=== PATIENT | female | born 1985 | race African-American/Black ===

== ENCOUNTER 2017-02-24 11:47 | Inpatient (IN) | payer MEDICAID ==
[~2017-02-24] VITALS: Ht 167.6 cm; Wt 68.4 kg
[2017-02-24] MEDS ORDERED: SODIUM CHLORIDE 0.9% 1,000 ML IV ONE ×2 (12:43→16:55)
[2017-02-24] MEDS ORDERED: KETOROLAC 30 MG/1 ML ONE (13:10)
[2017-02-24] MEDS ORDERED: ACETAMINOPHEN 325 MG TABLET ONE (13:10)
[2017-02-24 13:12] LABS: RAPID INFLUENZA A Negative (Negative); RAPID INFLUENZA B Negative (Negative)
[2017-02-24 13:16] LABS: BASOPHILS # (AUTO) 0.07 x10^3/uL (0-0.1); BASOPHILS % (AUTO) 1 % (0-1); EOSINOPHILS % (AUTO) 1 % (1-7); LYMPHOCYTES # (AUTO) 1.47 x10^3/uL (1-3.4); LYMPHOCYTES % (AUTO) 17 % (22-44); MD NO; MEAN CORPUSCULAR HEMOGLOBIN 26.2 pg (27.0-34.8); MEAN CORPUSCULAR HGB CONC 32.1 g/dL (32.4-35.8); MEAN CORPUSCULAR VOLUME 81.7 fL (80-100); MEAN PLATELET VOLUME 8.9 fL (7.4-10.4); MONOCYTES # (AUTO) 0.49 x10^3/uL (0.2-0.8); MONOCYTES % (AUTO) 6 % (2-9); NEUTROPHILS # (AUTO) 6.61 x10^3/uL (1.8-6.8); NEUTROPHILS % (AUTO) 76 % (42-75); PLATELET COUNT 282 x10^3/uL (130-400); RED BLOOD COUNT 4.44 x10^6/uL (3.82-5.3); RED CELL DISTRIBUTION WIDTH 15.5 % (9.6-15.2)
[2017-02-24 13:24] LABS: ANION GAP 10 mmol/L (5-15); CALCIUM 8.2 mg/dL (8.5-10.1); CHLORIDE 108 mmol/L (98-107); CREATININE 0.89 mg/dL (0.55-1.02)
[2017-02-24 13:25] LABS: ALBUMIN 3.1 g/dL (3.4-5.0)
[2017-02-24] MEDS ORDERED: KETOROLAC 30 MG/1 ML IVPush ONE (13:30)
[2017-02-24] MEDS ORDERED: ACETAMINOPHEN 325 MG TABLET PO ONE (13:30)
[2017-02-24] MEDS ORDERED: SODIUM CHLORIDE 0.9% 1,000ML IVBOLUS ONE ×2 (14:00→17:00)
[2017-02-24] MEDS ORDERED: LORazepam 2 MG/ML, 1ML ONE (15:04)
[2017-02-24] MEDS ORDERED: LORazepam 2 MG/ML, 1ML IVPush ONE (15:30)
[2017-02-24] MEDS ORDERED: OMNIPAQUE 350 MG/ML, 100ML BOTTLE ONE (16:08)
[2017-02-24] MEDS ORDERED: CEFTRIAXONE PMX 1GM/50ML 50 ML IVPB ONE (17:00)
[2017-02-24] MEDS ORDERED: AZITHROMYCIN 500 MG in SODIUM CHLORIDE 0.9% 250 ML IV ONE (17:00)
[2017-02-24] MEDS ORDERED: ONDANSETRON 2MG/ML, 2ML IVPush ONE ×2 (17:00→19:00)
[2017-02-24] MEDS ORDERED: CEFTRIAXONE PMX 1GM/50ML 50 ML ONE (17:08)
[2017-02-24] MEDS ORDERED: ONDANSETRON 2MG/ML, 2ML ONE ×2 (17:17→18:57)
[2017-02-24] MEDS ORDERED: SODIUM CHLORIDE 0.9% 1,000 ML IV SCH (17:23)
[2017-02-24] MEDS: CEFTRIAXONE PMX 1GM/50ML 50 ML IV SCH (17:30)
[2017-02-24] MEDS ORDERED: ONDANSETRON ODT 4 MG PO PRN (17:30)
[2017-02-24] MEDS ORDERED: ONDANSETRON 2MG/ML, 2ML IVPush PRN (17:30)
[2017-02-24] MEDS ORDERED: AZITHROMYCIN 500 MG in SODIUM CHLORIDE 0.9% 250 ML IV SCH (18:00)
[2017-02-24] MEDS ORDERED: MAGNESIUM SULFATE PMX 2GM/50ML 50 ML IV ONE (18:47)
[2017-02-24] MEDS ORDERED: PROMETHAZINE 25 MG/ML, 1ML IM PRN (19:30)
[2017-02-24] MEDS ORDERED: PROMETHAZINE/COD. 10MG/6.25MG/5 ML ORAL SOL PO PRN (19:30)
[2017-02-24] MEDS ORDERED: PROMETHAZINE 25 MG/ML, 1ML ONE (20:02)
[2017-02-24] MEDS: DOXYCYCLINE 100 MG in DEXTROSE 5% 250 ML IV SCH (22:41)
[2017-02-24] MEDS: GUAIFENESIN 100 MG/5 ML, 10ML UDC PO PRN (22:48)
[2017-02-24 23:07] VITALS: BP 160/115
[2017-02-24] MEDS ORDERED: METOPROLOL TARTRATE 25 MG TABLET PO ONE (23:30)
[2017-02-25] VITALS (7 sets, daily range): BP systolic 129–157; BP diastolic 100–118
[2017-02-25 00:51] LABS: HCG UR SG > 1.030 (1.003-1.030)
[2017-02-25] MEDS ORDERED: FUROSEMIDE 40 MG/4 ML IV ONE ×2 (01:00→17:30)
[2017-02-25] MEDS ORDERED: LORazepam 2 MG/ML, 1ML IVPush ONE (03:00)
[2017-02-25 03:26] LABS: BASOPHILS # (AUTO) 0.08 x10^3/uL (0-0.1); BASOPHILS % (AUTO) 1 % (0-1); EOSINOPHILS # (AUTO) 0.01 x10^3/uL (0-0.4); EOSINOPHILS % (AUTO) 0 % (1-7); LYMPHOCYTES # (AUTO) 1.82 x10^3/uL (1-3.4); LYMPHOCYTES % (AUTO) 19 % (22-44); MD NO; MEAN CORPUSCULAR HEMOGLOBIN 26.1 pg (27.0-34.8); MEAN CORPUSCULAR HGB CONC 32.2 g/dL (32.4-35.8); MEAN CORPUSCULAR VOLUME 80.9 fL (80-100); MEAN PLATELET VOLUME 8.6 fL (7.4-10.4); MONOCYTES # (AUTO) 0.58 x10^3/uL (0.2-0.8); MONOCYTES % (AUTO) 6 % (2-9); NEUTROPHILS # (AUTO) 7.18 x10^3/uL (1.8-6.8); NEUTROPHILS % (AUTO) 74 % (42-75); PLATELET COUNT 273 x10^3/uL (130-400); RED BLOOD COUNT 4.18 x10^6/uL (3.82-5.3); RED CELL DISTRIBUTION WIDTH 14.8 % (9.6-15.2)
[2017-02-25] MEDS ORDERED: methylPREDNISolone SOD SUCC 125 MG/2 ML IVPush ONE (03:30)
[2017-02-25 03:37] LABS: ALANINE AMINOTRANSFERASE 57 U/L (12-78); ALBUMIN 2.7 g/dL (3.4-5.0); ANION GAP 13 mmol/L (5-15); CALCIUM 7.4 mg/dL (8.5-10.1); CHLORIDE 111 mmol/L (98-107); CREATININE 1.08 mg/dL (0.55-1.02)
[2017-02-25 03:47] LABS: ALKALINE PHOSPHATASE 91 U/L (45-117); BILIRUBIN,TOTAL 0.6 mg/dL (0.2-1.0); THYROID STIMULATING HORMONE 0.374 mIU/L (0.358-3.740); TOTAL PROTEIN 6.2 g/dL (6.4-8.2)
[2017-02-25] MEDS: DOXYCYCLINE 100 MG in DEXTROSE 5% 250 ML IV SCH ×2 (12:17→22:47)
[2017-02-25] MEDS: ENOXAPARIN 40 MG/0.4 ML SQ SCH (13:00)
[2017-02-25 14:30] LABS: INTERNATIONAL NORMALIZED RATIO 1.31 (0.93-1.1); PROTHROMBIN TIME 13.6 Seconds (9.6-11.5)
[2017-02-25] MEDS ORDERED: LORazepam 1MG TABLET ONE (14:38)
[2017-02-25 14:42] LABS: MICROSCOPIC INDICATED
[2017-02-25] MEDS: LORazepam 1MG TABLET PO PRN ×2 (14:43→21:44)
[2017-02-25 14:52] LABS: CULTURE INDICATED? NO
[2017-02-25] MEDS ORDERED: LORazepam 2 MG/ML, 1ML IVPush PRN (15:00)
[2017-02-25] MEDS: POTASSIUM CHLORIDE 20 MEQ TAB.ER.PRT PO SCH (17:35)
[2017-02-25] MEDS: CEFTRIAXONE PMX 1GM/50ML 50 ML IV SCH (17:35)
[2017-02-25 17:57] LABS: AMPHETAMINE SCREEN, URINE Negative (Negative); BARBITURATE SCREEN, URINE Negative (Negative); BENZODIAZEPINE SCREEN, URINE Negative (Negative); CANNABINOID SCREEN, URINE Positive (Negative); COCAINE SCREEN, URINE Negative (Negative); METHADONE SCREEN, URINE Negative (Negative); OPIATE SCREEN, URINE Negative (Negative)
[2017-02-25] MEDS: LABETALOL 100 MG TABLET PO SCH (18:11)
[2017-02-25] MEDS: ACETAMINOPHEN 325 MG TABLET PO PRN ×2 (18:11→22:47)
[2017-02-25] MEDS: GUAIFENESIN 100 MG/5 ML, 10ML UDC PO PRN (21:44)
[2017-02-26 00:34] VITALS: BP 148/107
[2017-02-26] MEDS: ACETAMINOPHEN 325 MG TABLET PO PRN ×2 (05:24→21:51)
[2017-02-26] MEDS: LORazepam 1MG TABLET PO PRN ×3 (05:24→23:02)
[2017-02-26 05:37] LABS: ALBUMIN 2.9 g/dL (3.4-5.0); ANION GAP 10 mmol/L (5-15); CALCIUM 7.9 mg/dL (8.5-10.1); CHLORIDE 107 mmol/L (98-107)
[2017-02-26 05:42] LABS: ALANINE AMINOTRANSFERASE 129 U/L (12-78); ALKALINE PHOSPHATASE 89 U/L (45-117); BILIRUBIN,TOTAL 0.5 mg/dL (0.2-1.0); TOTAL PROTEIN 6.3 g/dL (6.4-8.2)
[2017-02-26 06:09] LABS: BASOPHILS # (AUTO) 0.05 x10^3/uL (0-0.1); BASOPHILS % (AUTO) 0 % (0-1); EOSINOPHILS # (AUTO) 0.02 x10^3/uL (0-0.4); EOSINOPHILS % (AUTO) 0 % (1-7); LYMPHOCYTES # (AUTO) 2.53 x10^3/uL (1-3.4); LYMPHOCYTES % (AUTO) 17 % (22-44); MD NO; MEAN CORPUSCULAR HEMOGLOBIN 26.8 pg (27.0-34.8); MEAN CORPUSCULAR HGB CONC 32.9 g/dL (32.4-35.8); MEAN CORPUSCULAR VOLUME 81.3 fL (80-100); MEAN PLATELET VOLUME 8.6 fL (7.4-10.4); MONOCYTES # (AUTO) 1.41 x10^3/uL (0.2-0.8); MONOCYTES % (AUTO) 9 % (2-9); NEUTROPHILS # (AUTO) 11.18 x10^3/uL (1.8-6.8); NEUTROPHILS % (AUTO) 74 % (42-75); PLATELET COUNT 243 x10^3/uL (130-400); RED BLOOD COUNT 3.95 x10^6/uL (3.82-5.3); RED CELL DISTRIBUTION WIDTH 15.7 % (9.6-15.2)
[2017-02-26 07:30] VITALS: BP 142/103
[2017-02-26] MEDS ORDERED: LABETALOL 5MG/ML, 20ML IVPush PRN (08:00)
[2017-02-26] MEDS ORDERED: FUROSEMIDE 40 MG/4 ML IV SCH ×2 (09:00)
[2017-02-26] MEDS ORDERED: LISINOPRIL 10 MG TABLET PO SCH (09:00)
[2017-02-26] MEDS: POTASSIUM CHLORIDE 20 MEQ TAB.ER.PRT PO SCH ×2 (09:44→16:42)
[2017-02-26] MEDS: GUAIFENESIN 100 MG/5 ML, 10ML UDC PO PRN (09:45)
[2017-02-26] MEDS: LABETALOL 100 MG TABLET PO SCH ×2 (09:45→18:13)
[2017-02-26] MEDS: SPIRONOLACTONE 25 MG TABLET PO SCH (09:45)
[2017-02-26] MEDS: LISINOPRIL 20 MG TABLET PO SCH (09:45)
[2017-02-26 10:11] VITALS: BP 89/58
[2017-02-26 12:40] VITALS: BP 124/88
[2017-02-26] MEDS: ENOXAPARIN 40 MG/0.4 ML SQ SCH (12:42)
[2017-02-26] MEDS ORDERED: FUROSEMIDE 100 MG/10 ML IV ONE (15:00)
[2017-02-26] MEDS: IBUPROFEN 200 MG TABLET PO PRN (16:42)
[2017-02-26] MEDS ORDERED: CEFTRIAXONE 1,000 MG in DEXTROSE 5% 50 ML IV SCH (17:30)
[2017-02-26 18:11] VITALS: BP 134/99
[2017-02-26 20:39] VITALS: BP 121/89
[2017-02-26] MEDS: DOXYCYCLINE 100MG TABLET PO SCH (21:51)
[2017-02-26] MEDS: FUROSEMIDE 40 MG/4 ML IV SCH (21:55)
[2017-02-27 05:25] VITALS: BP 135/99
[2017-02-27 07:37] VITALS: BP 129/91
[2017-02-27 08:07] LABS: MEAN CORPUSCULAR HEMOGLOBIN 26.3 pg (27.0-34.8); MEAN CORPUSCULAR HGB CONC 32.5 g/dL (32.4-35.8); MEAN CORPUSCULAR VOLUME 80.8 fL (80-100); MEAN PLATELET VOLUME 8.2 fL (7.4-10.4); PLATELET COUNT 251 x10^3/uL (130-400); RED CELL DISTRIBUTION WIDTH 15.3 % (9.6-15.2)
[2017-02-27 08:08] LABS: ANION GAP 10 mmol/L (5-15); CALCIUM 7.8 mg/dL (8.5-10.1); CHLORIDE 102 mmol/L (98-107); CREATININE 0.97 mg/dL (0.55-1.02)
[2017-02-27 08:10] VITALS: BP 138/102
[2017-02-27] MEDS: IBUPROFEN 200 MG TABLET PO PRN (08:11)
[2017-02-27] MEDS: POTASSIUM CHLORIDE 20 MEQ TAB.ER.PRT PO SCH (08:11)
[2017-02-27] MEDS: LISINOPRIL 20 MG TABLET PO SCH (08:11)
[2017-02-27] MEDS: LABETALOL 100 MG TABLET PO SCH (08:11)
[2017-02-27] MEDS: DOXYCYCLINE 100MG TABLET PO SCH (08:11)
[2017-02-27] MEDS: SPIRONOLACTONE 25 MG TABLET PO SCH (08:11)
[2017-02-27] MEDS: FUROSEMIDE 40 MG/4 ML IV SCH ×3 (08:12→10:26)
[2017-02-27 08:51] LABS: BASOPHILS # (AUTO) 0.08 x10^3/uL (0-0.1); BASOPHILS % (AUTO) 1 % (0-1); EOSINOPHILS % (AUTO) 2 % (1-7); LYMPHOCYTES # (AUTO) 2.44 x10^3/uL (1-3.4); LYMPHOCYTES % (AUTO) 21 % (22-44); MD SCAN; MONOCYTES # (AUTO) 0.98 x10^3/uL (0.2-0.8); MONOCYTES % (AUTO) 8 % (2-9); NEUTROPHILS # (AUTO) 8.21 x10^3/uL (1.8-6.8); NEUTROPHILS % (AUTO) 69 % (42-75)
[2017-02-27] MEDS: ENOXAPARIN 40 MG/0.4 ML SQ SCH (13:51)
[2017-02-27 14:47] VITALS: BP 129/93
== END 2017-02-27 17:00 | disposition left against medical advice (07) | DRG 776 ==
LOC: ED 16:59 → EDIP 17:00 → ED 17:32 → 4EST 20:36
PROVIDERS: ADMIT Family Medicine; ATTEND Family Medicine
DX: O85 Puerperal sepsis (principal); J96.01 Acute respiratory failure with hypoxia; I50.41 Acute combined systolic (congestive) and diastolic (congestive) heart failure; A41.9 Sepsis, unspecified organism; J18.1 Lobar pneumonia, unspecified organism; I27.20 Pulmonary hypertension, unspecified; I42.9 Cardiomyopathy, unspecified; E44.1 Mild protein-calorie malnutrition; I11.0 Hypertensive heart disease with heart failure; O99.43 Diseases of the circulatory system complicating the puerperium; O16.5 Unspecified maternal hypertension, complicating the puerperium; O99.53 Diseases of the respiratory system complicating the puerperium; O25.3 Malnutrition in the puerperium; O99.335 Smoking (tobacco) complicating the puerperium; I34.0 Nonrheumatic mitral (valve) insufficiency; F12.10 Cannabis abuse, uncomplicated; Z88.0 Allergy status to penicillin; Z82.49 Family history of ischemic heart disease and other diseases of the circulatory system; Z72.89 Other problems related to lifestyle; Z68.24 Body mass index [BMI] 24.0-24.9, adult
CPT/HCPCS: 36415; 36600; 71045; 71046; 71275; 80048; 80053; 80307; 81001; 81025; 82040; 82803; 83605; 83735; 83880; 84145; 84443; 84702; 85025; 85610; 87040; 87400; 93005; 93306; 96365; 96372; 96375; 96376; J0456; J0696; J1885; J1940; J2405; J2550; J7060; Q9967; J2060; J2930; J3475; J7030; J7050

== ENCOUNTER 2017-03-18 10:46 | Inpatient (IN) | payer MEDICAID, OTHER ==
[~2017-03-18] VITALS: Ht 167.6 cm; Wt 62.3 kg
[2017-03-18] MEDS ORDERED: MORPHINE SULFATE 4 MG/ML, 1ML ONE ×3 (11:53→17:53)
[2017-03-18] MEDS ORDERED: ONDANSETRON 2MG/ML, 2ML ONE ×2 (11:53→16:13)
[2017-03-18] MEDS ORDERED: FAMOTIDINE 20 MG/2 ML ONE (11:54)
[2017-03-18] MEDS ORDERED: FAMOTIDINE 20 MG/2 ML IVP ONE (12:00)
[2017-03-18] MEDS ORDERED: ONDANSETRON 2MG/ML, 2ML IVPush ONE (12:00)
[2017-03-18] MEDS ORDERED: SODIUM CHLORIDE FLUSH 10ML SYR IVF ONE (12:00)
[2017-03-18] MEDS: MORPHINE SULFATE 4 MG/ML, 1ML IVPush PRN ×2 (12:11→13:55)
[2017-03-18] MEDS ORDERED: METO25TA91 PO (12:18)
[2017-03-18 12:35] LABS: BASOPHILS # (AUTO) 0.19 x10^3/uL (0-0.1); BASOPHILS % (AUTO) 2 % (0-1); EOSINOPHILS # (AUTO) 0.07 x10^3/uL (0-0.4); EOSINOPHILS % (AUTO) 1 % (1-7); LYMPHOCYTES # (AUTO) 2.22 x10^3/uL (1-3.4); LYMPHOCYTES % (AUTO) 27 % (22-44); MD NO; MEAN CORPUSCULAR HEMOGLOBIN 25.6 pg (27.0-34.8); MEAN CORPUSCULAR HGB CONC 31.6 g/dL (32.4-35.8); MEAN PLATELET VOLUME 9.4 fL (7.4-10.4); MONOCYTES # (AUTO) 0.56 x10^3/uL (0.2-0.8); MONOCYTES % (AUTO) 7 % (2-9); NEUTROPHILS # (AUTO) 5.17 x10^3/uL (1.8-6.8); NEUTROPHILS % (AUTO) 63 % (42-75); PLATELET COUNT 316 x10^3/uL (130-400); RED BLOOD COUNT 4.74 x10^6/uL (3.82-5.3)
[2017-03-18 12:43] LABS: ALANINE AMINOTRANSFERASE 53 U/L (12-78); ALBUMIN 3.3 g/dL (3.4-5.0); ANION GAP 9 mmol/L (5-15); CALCIUM 8.4 mg/dL (8.5-10.1); CHLORIDE 106 mmol/L (98-107); CREATININE 1.38 mg/dL (0.55-1.02)
[2017-03-18 12:47] LABS: ALKALINE PHOSPHATASE 78 U/L (45-117); BILIRUBIN,TOTAL 0.6 mg/dL (0.2-1.0); TOTAL PROTEIN 7.1 g/dL (6.4-8.2); TROPONIN I 0.018 ng/mL (0.000-0.045)
[2017-03-18] MEDS ORDERED: POLYETHYLENE GLYCOL 17 GM PACKET PO PRN (14:30)
[2017-03-18] MEDS ORDERED: ONDANSETRON ODT 4 MG PO PRN (14:30)
[2017-03-18] MEDS ORDERED: LABETALOL 5MG/ML, 20ML IVPush PRN (14:30)
[2017-03-18] MEDS ORDERED: LISINOPRIL 20 MG TABLET PO SCH (15:00)
[2017-03-18] MEDS ORDERED: FUROSEMIDE 40 MG/4 ML IV SCH ×2 (15:00)
[2017-03-18] MEDS ORDERED: ENOXAPARIN 40 MG/0.4 ML ONE (15:23)
[2017-03-18] MEDS ORDERED: FUROSEMIDE 20 MG/2 ML ONE ×2 (15:23→21:41)
[2017-03-18 15:25] LABS: FREE T4 (FREE THYROXINE) 1.11 ng/dL (0.76-1.46); TROPONIN I 0.018 ng/mL (0.000-0.045)
[2017-03-18] MEDS: ENOXAPARIN 40 MG/0.4 ML SQ SCH (15:54)
[2017-03-18] MEDS ORDERED: CYCLOBENZAPRINE 10 MG TABLET PO PRN (16:00)
[2017-03-18] MEDS: ONDANSETRON 2MG/ML, 2ML IVPush PRN (16:14)
[2017-03-18] MEDS ORDERED: FUROSEMIDE 40 MG/4 ML IV ONE (16:30)
[2017-03-18] MEDS: SPIRONOLACTONE 25 MG TABLET PO SCH (17:22)
[2017-03-18] MEDS: morphine SULFATE 10 MG/ML, 1ML IVPush PRN ×2 (17:55→22:07)
[2017-03-18] MEDS: METOPROLOL TARTRATE 25 MG TABLET PO SCH (18:00)
[2017-03-18] MEDS ORDERED: FUROSEMIDE 100 MG/10 ML IV ONE (20:30)
[2017-03-18 20:51] LABS: TROPONIN I < 0.015 ng/mL (0.000-0.045)
[2017-03-18 21:00] VITALS: BP 136/105
[2017-03-19 02:00] VITALS: BP 149/108
[2017-03-19] MEDS: ONDANSETRON 2MG/ML, 2ML IVPush PRN ×2 (02:41→08:41)
[2017-03-19] MEDS: METOPROLOL TARTRATE 25 MG TABLET PO SCH (05:30)
[2017-03-19 06:09] LABS: BASOPHILS % (AUTO) 1 % (0-1); EOSINOPHILS % (AUTO) 1 % (1-7); LYMPHOCYTES # (AUTO) 1.89 x10^3/uL (1-3.4); LYMPHOCYTES % (AUTO) 25 % (22-44); MD NO; MEAN CORPUSCULAR HEMOGLOBIN 26.2 pg (27.0-34.8); MEAN PLATELET VOLUME 9.2 fL (7.4-10.4); MONOCYTES # (AUTO) 0.63 x10^3/uL (0.2-0.8); MONOCYTES % (AUTO) 8 % (2-9); NEUTROPHILS # (AUTO) 4.81 x10^3/uL (1.8-6.8); NEUTROPHILS % (AUTO) 64 % (42-75); PLATELET COUNT 279 x10^3/uL (130-400); RED BLOOD COUNT 4.93 x10^6/uL (3.82-5.3); RED CELL DISTRIBUTION WIDTH 15.3 % (9.6-15.2)
[2017-03-19 06:12] LABS: CHLORIDE 104 mmol/L (98-107)
[2017-03-19 06:37] LABS: ALBUMIN 3.2 g/dL (3.4-5.0); ANION GAP 11 mmol/L (5-15); CALCIUM 8.6 mg/dL (8.5-10.1)
[2017-03-19 06:42] LABS: ALANINE AMINOTRANSFERASE 53 U/L (12-78); ALKALINE PHOSPHATASE 78 U/L (45-117); BILIRUBIN,TOTAL 0.6 mg/dL (0.2-1.0); CREATININE 1.51 mg/dL (0.55-1.02); TOTAL PROTEIN 6.7 g/dL (6.4-8.2)
[2017-03-19 07:04] VITALS: BP 127/90
[2017-03-19 07:36] VITALS: BP 141/111
[2017-03-19] MEDS ORDERED: METOCLOPRAMIDE 5 MG/ML, 2ML IVPush ONE (08:00)
[2017-03-19] MEDS: METOPROLOL SUCCINATE 25 MG TAB.ER.24H PO SCH (08:00)
[2017-03-19] MEDS: morphine SULFATE 10 MG/ML, 1ML IVPush PRN ×2 (08:41→22:08)
[2017-03-19] MEDS ORDERED: FUROSEMIDE 100 MG/10 ML IV SCH (09:00)
[2017-03-19] MEDS ORDERED: FUROSEMIDE 20 MG/2 ML IV SCH (09:00)
[2017-03-19] MEDS: SENNA/DOCUSATE TABLET PO SCH (09:00)
[2017-03-19] MEDS: SPIRONOLACTONE 25 MG TABLET PO SCH (10:43)
[2017-03-19] MEDS: LOSARTAN 25MG TABLET PO SCH (10:44)
[2017-03-19 12:31] VITALS: BP 124/88
[2017-03-19] MEDS ORDERED: MAALOX/HYOSCYAMINE/LIDOCAINE 45 ML BTL PO ONE (14:30)
[2017-03-19] MEDS: ENOXAPARIN 40 MG/0.4 ML SQ SCH (14:30)
[2017-03-19] MEDS: OMEPRAZOLE 20 MG CAPSULE.DR PO SCH ×2 (15:22→19:56)
[2017-03-19 15:27] LABS: ANION GAP 9 mmol/L (5-15); CALCIUM 8.3 mg/dL (8.5-10.1); CHLORIDE 104 mmol/L (98-107); CREATININE 1.68 mg/dL (0.55-1.02)
[2017-03-19 20:00] VITALS: BP 118/86
[2017-03-20 02:00] VITALS: BP 129/90
[2017-03-20 05:33] LABS: BASOPHILS # (AUTO) 0.08 x10^3/uL (0-0.1); BASOPHILS % (AUTO) 1 % (0-1); EOSINOPHILS # (AUTO) 0.11 x10^3/uL (0-0.4); EOSINOPHILS % (AUTO) 2 % (1-7); LYMPHOCYTES # (AUTO) 2.29 x10^3/uL (1-3.4); LYMPHOCYTES % (AUTO) 36 % (22-44); MD NO; MEAN CORPUSCULAR HEMOGLOBIN 26.2 pg (27.0-34.8); MEAN CORPUSCULAR HGB CONC 32.3 g/dL (32.4-35.8); MEAN CORPUSCULAR VOLUME 81.2 fL (80-100); MEAN PLATELET VOLUME 8.9 fL (7.4-10.4); MONOCYTES % (AUTO) 8 % (2-9); NEUTROPHILS # (AUTO) 3.47 x10^3/uL (1.8-6.8); NEUTROPHILS % (AUTO) 54 % (42-75); PLATELET COUNT 284 x10^3/uL (130-400); RED BLOOD COUNT 4.73 x10^6/uL (3.82-5.3); RED CELL DISTRIBUTION WIDTH 16.2 % (9.6-15.2)
[2017-03-20 05:36] LABS: ALBUMIN 2.9 g/dL (3.4-5.0); ANION GAP 9 mmol/L (5-15); CALCIUM 8.2 mg/dL (8.5-10.1); CHLORIDE 103 mmol/L (98-107)
[2017-03-20 05:41] LABS: ALANINE AMINOTRANSFERASE 49 U/L (12-78); ALKALINE PHOSPHATASE 76 U/L (45-117); BILIRUBIN,TOTAL 0.5 mg/dL (0.2-1.0); TOTAL PROTEIN 6.4 g/dL (6.4-8.2)
[2017-03-20] MEDS: METOPROLOL SUCCINATE 25 MG TAB.ER.24H PO SCH (06:00)
[2017-03-20] MEDS ORDERED: FUROSEMIDE 20 MG/2 ML IV SCH (06:30)
[2017-03-20] MEDS ORDERED: FUROSEMIDE 40 MG/4 ML ONE (06:35)
[2017-03-20 06:40] VITALS: BP 129/95
[2017-03-20] MEDS: morphine SULFATE 10 MG/ML, 1ML IVPush PRN ×3 (06:40→19:58)
[2017-03-20] MEDS: OMEPRAZOLE 20 MG CAPSULE.DR PO SCH ×2 (08:26→19:58)
[2017-03-20] MEDS: SENNA/DOCUSATE TABLET PO SCH (08:26)
[2017-03-20] MEDS: SPIRONOLACTONE 25 MG TABLET PO SCH (08:26)
[2017-03-20] MEDS: LOSARTAN 25MG TABLET PO SCH (08:26)
[2017-03-20 10:18] LABS: AMPHETAMINE SCREEN, URINE Negative (Negative); BARBITURATE SCREEN, URINE Negative (Negative); BENZODIAZEPINE SCREEN, URINE Negative (Negative); CANNABINOID SCREEN, URINE Negative (Negative); COCAINE SCREEN, URINE Negative (Negative); METHADONE SCREEN, URINE Negative (Negative); OPIATE SCREEN, URINE Positive (Negative)
[2017-03-20] MEDS: METOLAZONE 5 MG TABLET PO SCH (11:42)
[2017-03-20 12:51] VITALS: BP 126/90
[2017-03-20] MEDS ORDERED: FUROSEMIDE 40 MG/4 ML IV ONE ×2 (14:00→18:00)
[2017-03-20] MEDS: ENOXAPARIN 40 MG/0.4 ML SQ SCH (14:30)
[2017-03-20 15:40] LABS: ANION GAP 9 mmol/L (5-15); CALCIUM 8.2 mg/dL (8.5-10.1); CHLORIDE 102 mmol/L (98-107); CREATININE 1.81 mg/dL (0.55-1.02)
[2017-03-20] MEDS: POTASSIUM CHLORIDE 20 MEQ TAB.ER.PRT PO SCH (16:49)
[2017-03-20 20:00] VITALS: BP 109/69
[2017-03-21 03:45] VITALS: BP 110/72
[2017-03-21 05:04] LABS: BASOPHILS # (AUTO) 0.05 x10^3/uL (0-0.1); BASOPHILS % (AUTO) 1 % (0-1); EOSINOPHILS # (AUTO) 0.13 x10^3/uL (0-0.4); EOSINOPHILS % (AUTO) 2 % (1-7); LYMPHOCYTES # (AUTO) 2.08 x10^3/uL (1-3.4); LYMPHOCYTES % (AUTO) 38 % (22-44); MD NO; MEAN CORPUSCULAR HEMOGLOBIN 25.9 pg (27.0-34.8); MEAN CORPUSCULAR HGB CONC 31.9 g/dL (32.4-35.8); MEAN PLATELET VOLUME 8.7 fL (7.4-10.4); MONOCYTES # (AUTO) 0.45 x10^3/uL (0.2-0.8); MONOCYTES % (AUTO) 8 % (2-9); NEUTROPHILS # (AUTO) 2.77 x10^3/uL (1.8-6.8); NEUTROPHILS % (AUTO) 51 % (42-75); PLATELET COUNT 305 x10^3/uL (130-400); RED BLOOD COUNT 5.29 x10^6/uL (3.82-5.3); RED CELL DISTRIBUTION WIDTH 15.7 % (9.6-15.2)
[2017-03-21 05:14] LABS: ALBUMIN 3.3 g/dL (3.4-5.0); ANION GAP 8 mmol/L (5-15); CALCIUM 8.8 mg/dL (8.5-10.1); CHLORIDE 96 mmol/L (98-107)
[2017-03-21 05:16] LABS: CREATININE 1.66 mg/dL (0.55-1.02)
[2017-03-21] MEDS: METOPROLOL SUCCINATE 25 MG TAB.ER.24H PO SCH (06:04)
[2017-03-21 07:03] VITALS: BP 114/82
[2017-03-21] MEDS ORDERED: FUROSEMIDE 40 MG/4 ML IV ONE ×3 (08:00→18:00)
[2017-03-21] MEDS: FUROSEMIDE 40 MG/4 ML IV SCH ×2 (08:36→11:54)
[2017-03-21] MEDS: OMEPRAZOLE 20 MG CAPSULE.DR PO SCH (08:37)
[2017-03-21] MEDS: LOSARTAN 25MG TABLET PO SCH (08:37)
[2017-03-21] MEDS: POTASSIUM CHLORIDE 20 MEQ TAB.ER.PRT PO SCH ×2 (08:37→11:55)
[2017-03-21] MEDS: METOLAZONE 5 MG TABLET PO SCH (08:37)
[2017-03-21] MEDS: SENNA/DOCUSATE TABLET PO SCH (08:38)
[2017-03-21] MEDS: SPIRONOLACTONE 25 MG TABLET PO SCH (08:49)
[2017-03-21 09:54] VITALS: BP 113/81
[2017-03-21] MEDS: morphine SULFATE 10 MG/ML, 1ML IVPush PRN (12:28)
[2017-03-21] MEDS ORDERED: FURO40TA6 PO (13:59)
[2017-03-21] MEDS ORDERED: POTA20TA6 PO (13:59)
[2017-03-21] MEDS ORDERED: SPIR25TA PO (13:59)
[2017-03-21] MEDS ORDERED: METO5TAB5 PO (13:59)
[2017-03-21] MEDS ORDERED: SUCR1TAB PO (13:59)
[2017-03-21] MEDS ORDERED: OMEP-110 PO (13:59)
[2017-03-21] MEDS ORDERED: LOSA25TA2 PO (13:59)
[2017-03-21] MEDS ORDERED: ONDA4TAB13 PO (13:59)
[2017-03-21 14:00] VITALS: BP 90/64
[2017-03-21] MEDS: ENOXAPARIN 40 MG/0.4 ML SQ SCH ×2 (14:30→14:38)
[2017-03-21 16:03] VITALS: BP 105/75
== END 2017-03-21 16:11 | disposition home or self-care (01) | DRG 683 ==
LOC: ED 12:21 → EDIP 14:25 → UNDOADMIN 14:30 → EDIP 14:30 → 4EST 20:02
PROVIDERS: ADMIT Internal Medicine; ATTEND Internal Medicine
DX: N17.9 Acute kidney failure, unspecified (principal); I13.0 Hypertensive heart and chronic kidney disease with heart failure and stage 1 through stage 4 chronic kidney disease, or unspecified chronic kidney disease; I27.20 Pulmonary hypertension, unspecified; E44.0 Moderate protein-calorie malnutrition; I42.8 Other cardiomyopathies; I50.32 Chronic diastolic (congestive) heart failure; I11.0 Hypertensive heart disease with heart failure; K21.9 Gastro-esophageal reflux disease without esophagitis; N18.9 Chronic kidney disease, unspecified; F12.10 Cannabis abuse, uncomplicated; Z79.899 Other long term (current) drug therapy; Z88.0 Allergy status to penicillin; Z88.8 Allergy status to other drugs, medicaments and biological substances; Z68.22 Body mass index [BMI] 22.0-22.9, adult
CPT/HCPCS: 36415; 71045; 76700; 76770; 80048; 80053; 80307; 82040; 82570; 83690; 83735; 83880; 84100; 84300; 84439; 84484; 84540; 85025; 93005; 96372; 96374; 96375; 96376; J1650; J1940; J2405; J2270; J2765; S0028

== ENCOUNTER 2017-11-12 19:47 | Emergency (ER) | payer MEDICAID ==
[~2017-11-12] VITALS: Ht 167.6 cm; Wt 58.6 kg
[~2017-11-12 19:47] MED LIST: FURO40TA6 PO; LOSA25TA2 PO; METO25TA91 PO; METO5TAB5 PO; OMEP-110 PO; ONDA4TAB13 PO; POTA20TA6 PO; SPIR25TA PO; SUCR1TAB PO
[2017-11-12] MEDS ORDERED: SODIUM CHLORIDE FLUSH 10ML SYR IVF ONE (20:00)
[2017-11-12] MEDS ORDERED: FAMOTIDINE 20 MG/2 ML IVP ONE (20:00)
[2017-11-12] MEDS ORDERED: ONDANSETRON ODT 4 MG PO ONE (20:00)
[2017-11-12] MEDS ORDERED: FAMOTIDINE 20 MG/2 ML ONE (20:18)
[2017-11-12] MEDS ORDERED: ONDANSETRON ODT 4 MG ONE (20:18)
[2017-11-12 20:34] LABS: BASOPHILS # (AUTO) 0.04 x10^3/uL (0-0.1); BASOPHILS % (AUTO) 1 % (0-1); EOSINOPHILS # (AUTO) 0.16 x10^3/uL (0-0.4); EOSINOPHILS % (AUTO) 2 % (1-7); LYMPHOCYTES # (AUTO) 1.53 x10^3/uL (1-3.4); LYMPHOCYTES % (AUTO) 18 % (22-44); MD NO; MEAN CORPUSCULAR HEMOGLOBIN 27.4 pg (27.0-34.8); MEAN CORPUSCULAR HGB CONC 33.4 g/dL (32.4-35.8); MEAN CORPUSCULAR VOLUME 82.1 fL (80-100); MEAN PLATELET VOLUME 8.9 fL (7.4-10.4); MONOCYTES # (AUTO) 0.62 x10^3/uL (0.2-0.8); MONOCYTES % (AUTO) 7 % (2-9); NEUTROPHILS # (AUTO) 6.26 x10^3/uL (1.8-6.8); NEUTROPHILS % (AUTO) 73 % (42-75); PLATELET COUNT 244 x10^3/uL (130-400); RED BLOOD COUNT 4.88 x10^6/uL (3.82-5.3); RED CELL DISTRIBUTION WIDTH 15.8 % (9.6-15.2)
[2017-11-12 20:35] LABS: ALANINE AMINOTRANSFERASE 21 U/L (12-78); ALBUMIN 4.3 g/dL (3.4-5.0); ANION GAP 10 mmol/L (5-15); CHLORIDE 111 mmol/L (98-107); CREATININE 0.95 mg/dL (0.55-1.02)
[2017-11-12 20:39] LABS: ALKALINE PHOSPHATASE 69 U/L (45-117); BILIRUBIN,TOTAL 0.5 mg/dL (0.2-1.0); TOTAL PROTEIN 8.6 g/dL (6.4-8.2)
[2017-11-12] MEDS ORDERED: POTASSIUM CHLORIDE 20 MEQ TAB.ER.PRT PO ONE (21:00)
[2017-11-12] MEDS ORDERED: LABETALOL 5MG/ML, 20ML IVPush ONE ×2 (21:00→23:00)
[2017-11-12 21:07] LABS: MICROSCOPIC INDICATED
[2017-11-12] MEDS ORDERED: LABETALOL 5MG/ML, 20ML ONE (21:07)
[2017-11-12] MEDS ORDERED: POTASSIUM CHLORIDE 20 MEQ TAB.ER.PRT ONE ×2 (21:08)
[2017-11-12] MEDS ORDERED: ACETAMINOPHEN 325 MG TABLET ONE (21:19)
[2017-11-12 21:36] LABS: CULTURE INDICATED? NO
[2017-11-12] MEDS ORDERED: ACETAMINOPHEN 325 MG TABLET PO ONE (22:30)
[2017-11-12 23:30] VITALS: BP 140/100
== END 2017-11-12 23:56 | disposition home or self-care (01) ==
LOC: ED 21:37
DX: O21.9 Vomiting of pregnancy, unspecified (principal); R11.0 Nausea; O16.1 Unspecified maternal hypertension, first trimester; Z88.0 Allergy status to penicillin; Z3A.01 Less than 8 weeks gestation of pregnancy
CPT/HCPCS: 36415; 71046; 76801; 80053; 81001; 83690; 84702; 84703; 85025; 96374; 96375; 96376; 99285; Q0162; S0028

== ENCOUNTER 2017-11-18 17:48 | Emergency (ER) | payer MEDICAID ==
[~2017-11-18] VITALS: Ht 168.9 cm; Wt 60.7 kg
[2017-11-18] MEDS ORDERED: ALBUTEROL/IPRATROPIUM 2.5MG/0.5MG, 3 ML NPPB ONE (18:30)
[2017-11-18 18:39] LABS: MEAN CORPUSCULAR HEMOGLOBIN 27.4 pg (27.0-34.8); MEAN CORPUSCULAR HGB CONC 32.9 g/dL (32.4-35.8); MEAN CORPUSCULAR VOLUME 83.3 fL (80-100); MEAN PLATELET VOLUME 8.8 fL (7.4-10.4); PLATELET COUNT 215 x10^3/uL (130-400); RED BLOOD COUNT 4.14 x10^6/uL (3.82-5.3); RED CELL DISTRIBUTION WIDTH 15.7 % (9.6-15.2)
[2017-11-18 18:40] LABS: CULTURE INDICATED? YES; MICROSCOPIC INDICATED
[2017-11-18] MEDS ORDERED: ALBUTEROL/IPRATROPIUM 2.5MG/0.5MG, 3 ML ONE (18:42)
[2017-11-18 18:43] LABS: ALANINE AMINOTRANSFERASE 19 U/L (12-78); ALBUMIN 3.6 g/dL (3.4-5.0); ANION GAP 9 mmol/L (5-15); CALCIUM 8.4 mg/dL (8.5-10.1); CHLORIDE 109 mmol/L (98-107); CREATININE 0.86 mg/dL (0.55-1.02)
[2017-11-18 18:50] LABS: BASOPHILS # (AUTO) 0.08 x10^3/uL (0-0.1); BASOPHILS % (AUTO) 1 % (0-1); EOSINOPHILS # (AUTO) 0.25 x10^3/uL (0-0.4); EOSINOPHILS % (AUTO) 3 % (1-7); LYMPHOCYTES # (AUTO) 1.78 x10^3/uL (1-3.4); LYMPHOCYTES % (AUTO) 23 % (22-44); MD SCAN; MONOCYTES # (AUTO) 0.62 x10^3/uL (0.2-0.8); MONOCYTES % (AUTO) 8 % (2-9); NEUTROPHILS # (AUTO) 5.04 x10^3/uL (1.8-6.8); NEUTROPHILS % (AUTO) 65 % (42-75)
[2017-11-18 18:59] LABS: ALKALINE PHOSPHATASE 67 U/L (45-117); BILIRUBIN,TOTAL 0.2 mg/dL (0.2-1.0); TOTAL PROTEIN 7.5 g/dL (6.4-8.2)
[2017-11-18 19:02] LABS: TROPONIN I < 0.015 ng/mL (0.000-0.045)
[2017-11-18] MEDS ORDERED: ACETAMINOPHEN 500 MG TABLET PO ONE (19:30)
[2017-11-18] MEDS ORDERED: ACETAMINOPHEN 500 MG TABLET ONE (19:45)
[2017-11-18 21:09] VITALS: BP 140/84
== END 2017-11-18 21:12 | disposition home or self-care (01) ==
LOC: ED 18:20
DX: O99.52 Diseases of the respiratory system complicating childbirth (principal); J00 Acute nasopharyngitis [common cold]; O20.0 Threatened abortion; O23.10 Infections of bladder in pregnancy, unspecified trimester; O16.4 Unspecified maternal hypertension, complicating childbirth; Z3A.00 Weeks of gestation of pregnancy not specified
CPT/HCPCS: 36415; 71045; 76801; 80053; 81001; 83880; 84484; 84702; 85025; 85379; 86901; 87086; 93005; 94640; 99285; J7512; J7620